=== PATIENT | male | born 1975 | race Caucasian/White ===

== ENCOUNTER 2016-06-11 04:43 | Emergency (ER) | payer SELFPAY ==
[~2016-06-11] VITALS: Ht 177.8 cm; Wt 62.0 kg
[~2016-06-11 04:43] MED LIST: ESCI10TA PO
[2016-06-11 04:44] VITALS: BP 135/89; PULSE 86; RESP 15; TEMP 97.8; O2SAT 98
[2016-06-11] MEDS ORDERED: SUBO8MIS SL (05:26)
--- NOTE | 2016-06-11 05:51 | PD ---
HPI Chief Complaint: Psychiatric Symptoms Time Seen by Provider: 05:10 Travel History International Travel<30 days: No Contact w/Intl Traveler<30days: No Traveled to known affect area: No History of Present Illness HPI Patient is a 40-year-old male presents emergency department for evaluation of suicidal ideation. Patient states he has been using cocaine in the past. He states that he wants to be clean and if he can't keep clean he may end it all. He is very passive suicidal statements. Of note his girlfriend is here and per triage has very similar history. He denies any physical complaints denies any chest pain abdominal pain nausea vomiting diarrhea. Patient states he considered going to [place] today but was unable to get out there. [facility] Past Medical History Arthritis: Yes Asthma: Yes Diminished Hearing: No Hepatitis: Yes (C) Musculoskeletal: Yes Neurologic: Yes Parkinson's Disease: Yes Respiratory: Yes Integumentary: Yes (ABCESS TO BILAT ARM ) Immunizations Current: Yes Migraines: Yes Tetanus Vaccination: > 5 Years Influenza Vaccination: Yes Past Surgical History Other Surgery: Yes Social History Alcohol Use: Yes (SOCIALLY) Tobacco Use: Yes (1PPD ) Substance Use: Yes (IV DRUGS/COCAINE) Allergies-Medications (Allergen,Severity, Reaction): Coded Allergies: Demerol (Verified Allergy, Severe, UNKNOWN, 06/11/16) Reported Meds & Prescriptions Reported Meds & Active Scripts Active Reported Suboxone Sublingual Film (Buprenorphine-Naloxone Sublingual Film) 8-2 Mg Film 1 Film SL Unique ID number required: Review of Systems Except as stated in HPI: all other systems reviewed are Neg Physical Exam Narrative GENERAL: Well-developed well-nourished no apparent distress. SKIN: Focused skin assessment warm/dry. HEAD: Atraumatic. Normocephalic. EYES: Pupils equal and round. No scleral icterus. No injection or drainage. ENT: No nasal bleeding or discharge. Mucous membranes pink and moist. NECK: Trachea midline. No JVD. CARDIOVASCULAR: Regular rate and rhythm. No murmur appreciated. RESPIRATORY: No accessory muscle use. Clear to auscultation. Breath sounds equal bilaterally. GASTROINTESTINAL: Abdomen soft, non-tender, nondistended. Hepatic and splenic margins not palpable. MUSCULOSKELETAL: No obvious deformities. No clubbing. No cyanosis. No edema. NEUROLOGICAL: Awake and alert. No obvious cranial nerve deficits. Motor grossly within normal limits. Normal speech. PSYCHIATRIC: Normal affect, depressed mood. Endorses suicidal ideation without planning. Data Data Last Documented VS Vital Signs Date Time Temp Pulse Resp B/P Pulse Ox O2 Delivery O2 Flow Rate FiO2 06/11/16 05:26 14 06/11/16 04:44 97.8 86 135/89 98 Room Air Orders Complete Blood Count With Diff (06/11/16 05:11) Comprehensive Metabolic Panel (06/11/16 05:11) Psych Screen (06/11/16 05:11) Drug Screen, Random Urine (06/11/16 05:11) Alcohol (Ethanol) (06/11/16 05:11) Labs Laboratory Tests Test 06/11/16 05:30 White Blood Count 6.0 TH/MM3 Red Blood Count 5.60 MIL/MM3 Hemoglobin 16.0 GM/DL Hematocrit 47.2 % Mean Corpuscular Volume 84.2 FL Mean Corpuscular Hemoglobin 28.5 PG Mean Corpuscular Hemoglobin 33.9 % Concent Red Cell Distribution Width 14.2 % Platelet Count 184 TH/MM3 Mean Platelet Volume 9.0 FL Neutrophils (%) (Auto) 53.5 % Lymphocytes (%) (Auto) 35.3 % Monocytes (%) (Auto) 6.7 % Eosinophils (%) (Auto) 3.4 % Basophils (%) (Auto) 1.1 % Neutrophils # (Auto) 3.2 TH/MM3 Lymphocytes # (Auto) 2.1 TH/MM3 Monocytes # (Auto) 0.4 TH/MM3 Eosinophils # (Auto) 0.2 TH/MM3 Basophils # (Auto) 0.1 TH/MM3 CBC Comment DIFF FINAL Differential Comment Sodium Level 139 MEQ/L Potassium Level 4.0 MEQ/L Chloride Level 108 MEQ/L Carbon Dioxide Level 24.2 MEQ/L Anion Gap 7 MEQ/L Blood Urea Nitrogen 12 MG/DL Creatinine 0.87 MG/DL Estimat Glomerular Filtration 97 ML/MIN Rate Random Glucose 80 MG/DL Calcium Level 9.2 MG/DL Total Bilirubin 0.4 MG/DL Aspartate Amino Transf 15 U/L (AST/SGOT) Alanine Aminotransferase 18 U/L (ALT/SGPT) Alkaline Phosphatase 93 U/L Total Protein 7.6 GM/DL Albumin 3.8 GM/DL Urine Opiates Screen NEG Urine Barbiturates Screen NEG Urine Amphetamines Screen NEG Urine Benzodiazepines Screen NEG Urine Cocaine Screen POS Urine Cannabinoids Screen POS Ethyl Alcohol Level LESS THAN 3 MG/DL MDM Medical Decision Making Medical Screen Exam Complete: Yes Emergency Medical Condition: Yes Differential Diagnosis Substance induced mood disorder, malingering needs to be considered, suicidal ideation. Narrative Course Patient roomed emergency department, has no physical complaints of warmth emergent workup at this time. He is medically stable for psychiatric evaluation and disposition. He is voluntary status at this time and does not meet [place] act criteria. Diagnosis Primary Impression: Adjustment disorder with mixed disturbance of emotions and conduct Additional Impression: Cocaine abuse Condition: Stable Parish Ricci MD Jun 11, 2016 05:51
[2016-06-11 06:00] LABS: AMPHETAMINE, URINE NEG (NEG); BARBITURATES, URINE NEG (NEG); COCAINE, URINE POS (NEG)
[2016-06-11 06:01] LABS: AUTOMATED NEUTROPHIL # 3.2 TH/MM3 (1.8-7.7); BASOPHIL # 0.1 TH/MM3 (0-0.2); BASOPHIL % 1.1 % (0.0-2.0); EOSINOPHIL # 0.2 TH/MM3 (0-0.4); EOSINOPHIL % 3.4 % (0.0-4.0); HEMATOCRIT 47.2 % (39.0-51.0); HEMO FLAGS DIFF FINAL; LYMPH % 35.3 % (9.0-44.0); LYMPHOCYTE # 2.1 TH/MM3 (1.0-4.8); MEAN CELL VOLUME 84.2 FL (80.0-100.0); MEAN CORPUSCULAR HEMOGLOBIN 28.5 PG (27.0-34.0); MEAN CORPUSCULAR HGB CONC 33.9 % (32.0-36.0); MONO % 6.7 % (0.0-8.0); NEUT % 53.5 % (16.0-70.0); PLATELET COUNT 184 TH/MM3 (150-450); RED CELL DISTRIBUTION WIDTH 14.2 % (11.6-17.2)
[2016-06-11 06:05] LABS: ALT (GPT) 18 U/L (12-78); ANION GAP 7 MEQ/L (5-15); AST (GOT) 15 U/L (15-37); BICARBONATE 24.2 MEQ/L (21.0-32.0); BLOOD UREA NITROGEN 12 MG/DL (7-18); CHLORIDE 108 MEQ/L (98-107); GLOMERULAR FILTRATION RATE 97 ML/MIN (>89); SODIUM (NA) 139 MEQ/L (136-145)
[2016-06-11 06:08] LABS: ALKALINE PHOSPHATASE 93 U/L (45-117); TOTAL BILIRUBIN ADULT 0.4 MG/DL (0.2-1.0)
== END 2016-06-11 09:22 | disposition home or self-care (01) ==
LOC: NEPC 04:43
DX: F43.25 Adjustment disorder with mixed disturbance of emotions and conduct (principal); F14.10 Cocaine abuse, uncomplicated; G20 Parkinson's disease; R45.851 Suicidal ideations; F17.210 Nicotine dependence, cigarettes, uncomplicated
CPT/HCPCS: 80053; 80307; 85025; 99284

== ENCOUNTER 2016-10-09 11:26 | Emergency (ER) | payer SELFPAY ==
[~2016-10-09] VITALS: Ht 175.3 cm; Wt 70.0 kg
[~2016-10-09 11:26] MED LIST changes: -ESCI10TA PO; +SUBO8MIS SL
[2016-10-09 11:39] VITALS: BP 129/78; PULSE 72; RESP 14; TEMP 98.4; O2SAT 99
--- NOTE | 2016-10-09 11:59 | PD ---
HPI Chief Complaint: Skin Problem Time Seen by Provider: 11:56 Travel History International Travel<30 days: No Contact w/Intl Traveler<30days: No Traveled to known affect area: No History of Present Illness HPI 40-year-old male presents the emergency department with history of IV drug use, and reports of shooting up Suboxone to his right wrist 2 days ago with secondary pain, swelling, erythema, and warmth along the dorsal wrist and forearm. Patient denies significant fever, chills, or other symptoms. There is no obvious abscess or drainage. He has decreased range of motion secondary to pain. He has no numbness. Pain is 8 out of 10. He is allergic to Demerol. PFSH Past Medical History Arthritis: Yes Asthma: Yes Diminished Hearing: No Hepatitis: Yes (C) Musculoskeletal: Yes Neurologic: Yes Parkinson's Disease: Yes Respiratory: Yes Integumentary: Yes (ABCESS TO BILAT ARM ) Immunizations Current: Yes Migraines: Yes Past Surgical History Other Surgery: Yes Social History Alcohol Use: Yes (SOCIALLY) Tobacco Use: Yes (1PPD ) Substance Use: Yes Allergies-Medications (Allergen,Severity, Reaction): Coded Allergies: Demerol (Verified Allergy, Severe, UNKNOWN, 06/11/16) Reported Meds & Prescriptions Reported Meds & Active Scripts Active Reported Suboxone Sublingual Film (Buprenorphine-Naloxone Sublingual Film) 8-2 Mg Film 1 Film SL Unique ID number required: Review of Systems Except as stated in HPI: all other systems reviewed are Neg General / Constitutional: No: Fever, Chills Eyes: No: Visual changes HENT: No: Headaches Cardiovascular: No: Chest Pain or Discomfort Respiratory: No: Shortness of Breath Gastrointestinal: No: Abdominal Pain Genitourinary: No: Dysuria Musculoskeletal: No: Pain Skin: Positive Lesions (see history of present illness), No Rash Neurologic: No: Weakness Psychiatric: No: Depression Endocrine: No: Polydipsia Hematologic/Lymphatic: No: Easy Bruising Physical Exam Narrative GENERAL: Patient is in no acute distress. SKIN: Warm and dry. Normal color. Normal turgor. Patient has generalized erythema, warmth, and induration to the dorsal right proximal hand, wrist, and distal forearm. There is no obvious sign of abscess, pointing, or fluctuance. No significant streaking proximally. HEAD: Atraumatic. Normocephalic. EYES: Pupils equal and round. No scleral icterus. No injection or drainage. ENT: No nasal bleeding or discharge. Mucous membranes pink and moist. Pharynx is clear. Airway is patent NECK: Trachea midline. Supple nontender. CARDIOVASCULAR: Regular rate and rhythm. RESPIRATORY: No accessory muscle use. Clear to auscultation. Breath sounds equal bilaterally. MUSCULOSKELETAL: Extremities without clubbing, cyanosis, or edema. No obvious deformities. Patient has decreased range of motion of the right hand, wrist, and forearm secondary to pain. NEUROLOGICAL: Awake and alert. No obvious cranial nerve deficits. Motor grossly within normal limits. Five out of 5 muscle strength in the arms and legs. Normal speech. PSYCHIATRIC: Appropriate mood and affect; insight and judgment normal. Data Data Last Documented VS Vital Signs Date Time Temp Pulse Resp B/P Pulse Ox O2 Delivery O2 Flow Rate FiO2 10/09/16 11:39 98.4 72 14 129/78 99 Orders Clindamycin Inj (Cleocin Inj) (10/09/16 12:00) Ketorolac Inj (Toradol Inj) (10/09/16 12:00) [facility] Medical Decision Making Medical Screen Exam Complete: Yes Emergency Medical Condition: Yes Medical Record Reviewed: Yes Differential Diagnosis IV drug abuse. Cellulitis. Possible early abscess. MRSA. Narrative Course Patient is medically stable at time of exam. Patient is given 60 mg Toradol IM as well as 600 mg clindamycin IM. Patient is discharged home with Bactrim DS twice a day 7 days. Patient also given Keflex 500 mg 3 times a day 7 days. Patient is given ibuprofen 800 mg 3 times daily with food #30. Patient is to follow up if symptoms do not improve or worsen over the next couple days. Patient is encouraged to stop using illicit street drugs. Diagnosis Primary Impression: Right arm cellulitis Additional Impression: Polysubstance dependence including opioid type drug, episodic abuse Referrals: [facility] (Out patient) [facility] Patient Instructions: Cellulitis (ED), General Instructions, MRSA (Methicillin Resistant Staphylococcus Aureus) (ED) Additional Instructions: Patient is medically stable at time of exam. Patient is given 60 mg Toradol IM as well as 600 mg clindamycin IM. Patient is discharged home with Bactrim DS twice a day 7 days. Patient also given Keflex 500 mg 3 times a day 7 days. Patient is given ibuprofen 800 mg 3 times daily with food #30. Patient is to follow up if symptoms do not improve or worsen over the next couple days. Patient is encouraged to stop using illicit street drugs. Med/Other Pt SpecificInfo: Prescription(s) given Scripts Ibuprofen 800 Mg [id number] Mg PO Q8H PRN (Pain/Inflammation) #30 TAB Prov:Sam Sanchez MD 10/09/16 Cephalexin 500 Mg [id number] Mg PO Q8H #21 CAP Prov:Sam Sanchez MD 10/09/16 Sulfamethoxazole-Trimethoprim (Bactrim DS)800-160 Mg Tab1 Tab PO BID #14 TAB Prov:Sam Sanchez MD 10/09/16 Disposition: 01 DISCHARGE HOME Condition: Stable Tejinder Wesley Oct 09, 2016 11:59
[2016-10-09] MEDS ORDERED: KETOROLAC TROMETHAMINE 60 MG/2 ML (IM) VIAL IM ONE (12:00)
[2016-10-09] MEDS ORDERED: CLINDAMYCIN PHOS 600 MG/4 ML VIAL IM ONE (12:00)
[2016-10-09] MEDS ORDERED: IBUP800T23 PO (12:06)
[2016-10-09] MEDS ORDERED: CEPH500C PO (12:06)
[2016-10-09] MEDS ORDERED: BACT800T5 PO (12:06)
== END 2016-10-09 12:41 | disposition home or self-care (01) ==
LOC: NEPK 11:26
DX: L03.113 Cellulitis of right upper limb (principal); F11.10 Opioid abuse, uncomplicated; J45.909 Unspecified asthma, uncomplicated; G20 Parkinson's disease; B19.20 Unspecified viral hepatitis C without hepatic coma
CPT/HCPCS: 96372; 99284; J1885

== ENCOUNTER 2016-11-16 11:34 | Emergency (ER) | payer SELFPAY ==
[~2016-11-16] VITALS: Ht 177.8 cm; Wt 70.0 kg
[~2016-11-16 11:34] MED LIST changes: +BACT800T5 PO; +CEPH500C PO; +IBUP800T23 PO
[2016-11-16 11:36] VITALS: BP 125/78; PULSE 97; RESP 16; TEMP 98.7; O2SAT 97
[2016-11-16] MEDS ORDERED: CEPH-460 PO (12:07)
[2016-11-16] MEDS ORDERED: BACT800T5 PO (12:07)
--- NOTE | 2016-11-16 12:07 | PD ---
HPI Chief Complaint: Skin Problem Time Seen by Provider: 12:01 Travel History International Travel<30 days: No Contact w/Intl Traveler<30days: No Traveled to known affect area: No History of Present Illness HPI 40-year-old male with no significant medical history presents to the emergency department for evaluation of blisters on his feet worsening over the last 3-4 days. Patient states that they are very painful and has developed redness surrounding them with drainage from the site. States that [facility] and his feet have been wet. He denies any fever or chills. In sensation of his tetanus status. No other symptoms to report. PFSH Past Medical History Arthritis: Yes Asthma: Yes Diminished Hearing: No Hepatitis: Yes (C) Musculoskeletal: Yes Neurologic: Yes Parkinson's Disease: Yes Respiratory: Yes Integumentary: Yes (ABCESS TO BILAT ARM ) Immunizations Current: Yes Migraines: Yes Past Surgical History Other Surgery: Yes Social History Alcohol Use: Yes (SOCIALLY) Tobacco Use: Yes (1PPD ) Substance Use: Yes Allergies-Medications (Allergen,Severity, Reaction): Coded Allergies: meperidine (Unverified Allergy, Severe, UNKNOWN, 10/20/16) Reported Meds & Prescriptions Reported Meds & Active Scripts Active Keflex (Cephalexin) 500 Mg Cap 500 Mg PO Q6H 5 Days Bactrim DS (Sulfamethoxazole-Trimethoprim) 800-160 Mg Tab 1 Tab PO BID Ibuprofen 800 Mg Tab 800 Mg PO Q8H PRN Cephalexin 500 Mg Cap 500 Mg PO Q8H Bactrim DS (Sulfamethoxazole-Trimethoprim) 800-160 Mg Tab 1 Tab PO BID Reported Suboxone Sublingual Film (Buprenorphine-Naloxone Sublingual Film) 8-2 Mg Film 1 Film SL Unique ID number required: Review of Systems Except as stated in HPI: all other systems reviewed are Neg Physical Exam Narrative GENERAL: Unkempt male patient, ambulatory no acute distress SKIN: Focused skin assessment warm/dry. Full scabbed lesions over the extremities. Patient does have 2 areas of 3 cm in diameter wounds, consistent with friction blisters on the medial aspect of the bilateral heels. There is erythema extending around this with a yellow slough in the middle. No fluctuance. HEAD: Atraumatic. Normocephalic. EYES: Pupils equal and round. No scleral icterus. No injection or drainage. ENT: No nasal bleeding or discharge. Mucous membranes pink and moist. NECK: Trachea midline. No JVD. CARDIOVASCULAR: Regular rate and rhythm. No murmur appreciated. RESPIRATORY: No accessory muscle use. Clear to auscultation. Breath sounds equal bilaterally. MUSCULOSKELETAL: No obvious deformities. No clubbing. No cyanosis. No edema. NEUROLOGICAL: Awake and alert. No obvious cranial nerve deficits. Motor grossly within normal limits. Normal speech. Data Data Last Documented VS Vital Signs Date Time Temp Pulse Resp B/P (MAP) Pulse Ox O2 Delivery O2 Flow Rate FiO2 11/16/16 11:36 98.7 97 16 125/78 (94) 97 Orders Orders Tetanus/Diphtheria Tox Adult (Tetanus/Di (11/16/16 12:15) Wound Care (11/16/16 12:01) MDM Medical Decision Making Medical Screen Exam Complete: Yes Emergency Medical Condition: Yes Medical Record Reviewed: Yes Differential Diagnosis Blister versus open wound versus infected wound versus cellulitis Narrative Course 40-year-old male presents to the emergency department for evaluation of foot blisters. Physical finding is consistent with friction blisters and a slight cellulitis surrounding them. He will be started on oral antibiotic. He is updated on his tetanus. He is counseled on care. He agrees to return immediately with any acute worsening of symptoms. Diagnosis Primary Impression: Infected blister of left foot Qualified Codes: S90.822A - Blister (nonthermal), left foot, initial encounter ; L08.9 - Local infection of the skin and subcutaneous tissue, unspecified Additional Impression: Infected blister of right foot Qualified Codes: S90.821A - Blister (nonthermal), right foot, initial encounter; L08.9 - Local infection of the skin and subcutaneous tissue, unspecified Referrals: Primary Care Physician Patient Instructions: Acute Wound Care (GEN), General Instructions Additional Instructions: Keep the wounds clean and dry Wash with warm soapy water Pat dry Apply antibiotic ointment that he can purchase [id number] Return immediately to the emergency department with any acute worsening of symptoms Med/Other Pt SpecificInfo: Prescription(s) given Scripts Cephalexin (Keflex) 500 Mg Cap 500 MG PO Q6H for Infection for 5 Days, CAP 0 Refills Prov: Yadi Sanchez 11/16/16 Sulfamethoxazole-Trimethoprim (Bactrim DS) 800-160 Mg Tab 1 TAB PO BID for Infection, #20 TAB 0 Refills Prov: Yadi Sanchez 11/16/16 Disposition: 01 DISCHARGE HOME Condition: Stable Yadi Sanchez Nov 16, 2016 12:07
[2016-11-16] MEDS ORDERED: TETANUS/DIPHTHERIA TOXOID ADULT 0.5 ML VIAL IM ONE (12:15)
== END 2016-11-16 12:43 | disposition home or self-care (01) ==
LOC: NETRI 11:34
DX: S90.822A Blister (nonthermal), left foot, initial encounter (principal); S90.821A Blister (nonthermal), right foot, initial encounter; L08.9 Local infection of the skin and subcutaneous tissue, unspecified; X58.XXXA Exposure to other specified factors, initial encounter
CPT/HCPCS: 99284

== ENCOUNTER 2016-12-04 10:47 | Emergency (ER) | payer SELFPAY ==
[~2016-12-04] VITALS: Ht 177.8 cm; Wt 64.0 kg
[~2016-12-04 10:47] MED LIST changes: +CEPH-460 PO
[2016-12-04 10:54] VITALS: BP 108/73; PULSE 107; RESP 16; TEMP 100.2; O2SAT 97
[2016-12-04] MEDS ORDERED: SODIUM CHLOR 0.9% 1000 ML INJ 100 ML IV ONE (11:16)
[2016-12-04] MEDS ORDERED: SODIUM CHLOR 0.9% 1000 ML INJ 1,000 ML IV ONE ×2 (11:16)
[2016-12-04] MEDS ORDERED: ONDANSETRON HCL 4 MG/2 ML VIAL IV PUSH ONE (11:30)
[2016-12-04] MEDS ORDERED: ACETAMINOPHEN 325 MG TAB PO ONE (11:30)
--- NOTE | 2016-12-04 11:35 | PD ---
HPI Chief Complaint: GI Complaint Time Seen by Provider: 11:05 Travel History International Travel<30 days: No Contact w/Intl Traveler<30days: No Traveled to known affect area: No History of Present Illness HPI The patient is a 40-year-old male who presents to the emergency department for sore throat, anterior neck pain, and subjective fevers. The patient notes a 3-4 history day history of nausea, vomiting, diarrhea. The patient states the vomiting and diarrhea resolved yesterday, however, he then developed a fever. He now complains of a sore throat, pain with swallowing, and anterior neck pain. The patient does have a remote history of IV drug abuse , last used IV drugs one year ago. He denies any history of epidural abscess. He does have a history of low back pain, denies any acute changes. He denies any posterior neck pain or meningeal signs. He does note multiple skin lesions to the hands and legs bilaterally which have been present for several weeks. He denies any known history of MRSA infections. The patient's symptoms are moderate, there are no current alleviating or exacerbating factors. PFSH Past Medical History Arthritis: Yes Asthma: Yes Diminished Hearing: No Hepatitis: Yes (C) Musculoskeletal: Yes Neurologic: Yes Parkinson's Disease: Yes Respiratory: Yes Integumentary: Yes (ABCESS TO BILAT ARM ) Immunizations Current: Yes Migraines: Yes Past Surgical History Other Surgery: Yes Social History Alcohol Use: Yes (SOCIALLY) Tobacco Use: Yes (1PPD ) Substance Use: Yes Allergies-Medications (Allergen,Severity, Reaction): Coded Allergies: meperidine (Unverified Allergy, Severe, UNKNOWN, 12/04/16) Reported Meds & Prescriptions Reported Meds & Active Scripts Active Reported Suboxone Sublingual Film (Buprenorphine-Naloxone Sublingual Film) 8-2 Mg Film 1 Film SL Unique ID number required: Review of Systems Except as stated in HPI: all other systems reviewed are Neg General / Constitutional: Positive: Fever HENT: Positive: Sore Throat, No: Headaches Cardiovascular: No: Chest Pain or Discomfort Respiratory: Positive: Cough, No: Shortness of Breath Gastrointestinal: Positive: Nausea, Vomiting, Diarrhea, No: Abdominal Pain Genitourinary: No: Dysuria Musculoskeletal: Positive: Myalgias Skin: Positive Other (as noted in the history of present illness) Psychiatric: Positive: Substance Abuse (stop using IV drugs one year ago) Physical Exam Narrative GENERAL: Awake, alert, pleasant 40-year-old male who appears his stated age and is in no acute respiratory distress. SKIN: Focused skin assessment warm/dry. Multiple circular crusting skin lesions noted arms, hands, and Lasix consistent with impetigo. HEAD: Atraumatic. Normocephalic. EYES: Pupils equal and round. No scleral icterus. No injection or drainage. ENT: No nasal bleeding or discharge. Oropharynx reveals erythema but no exudate. NECK: Trachea midline. No JVD. Shotty anterior cervical lymph adenopathy bilateral. No meningeal signs. CARDIOVASCULAR: Regular rate and rhythm. No murmur appreciated. Heart rate in the 90s. RESPIRATORY: No accessory muscle use. Clear to auscultation. Breath sounds equal bilaterally. GASTROINTESTINAL: Abdomen soft, non-tender, nondistended. No rebound tenderness. No guarding or rigidity. MUSCULOSKELETAL: No obvious deformities. No clubbing. No cyanosis. No edema. NEUROLOGICAL: Awake and alert. No obvious cranial nerve deficits. Motor grossly within normal limits. Normal speech. Nonfocal. Oriented 4. Follows commands without difficulty. PSYCHIATRIC: Appropriate mood and affect; insight and judgment normal. Data Data Last Documented VS Vital Signs Date Time Temp Pulse Resp B/P (MAP) Pulse Ox O2 Delivery O2 Flow Rate FiO2 12/04/16 11:04 16 12/04/16 10:54 100.2 107 108/73 (85) 97 Orders Orders Electrocardiogram (12/04/16 11:16) Complete Blood Count With Diff (12/04/16 11:16) Comprehensive Metabolic Panel (12/04/16 11:16) Lactic Acid Sepsis Protocol (12/04/16 11:16) Lipase (12/04/16 11:16) Urinalysis - C+S If Indicated (12/04/16 11:16) Influenzae A/B Antigen (12/04/16 11:16) Blood Culture (12/04/16 11:16) Chest, Single Ap (12/04/16 11:16) Blood Glucose (12/04/16 11:16) Ecg Monitoring (12/04/16 11:16) Iv Access Insert/Monitor (12/04/16 11:16) Oximetry (12/04/16 11:16) Oxygen Administration (12/04/16 11:16) Acetaminophen (Tylenol) (12/04/16 11:30) Ondansetron Inj (Zofran Inj) (12/04/16 11:30) Sodium Chlor 0.9% 1000 Ml Inj (Ns 1000 M (12/04/16 11:16) Sodium Chlor 0.9% 1000 Ml Inj (Ns 1000 M (12/04/16 11:16) Sodium Chlor 0.9% 1000 Ml Inj (Ns 1000 M (12/04/16 11:16) Group A Rapid Strep Screen (12/04/16 11:16) Penicillin G Benzathine Inj (Bicillin L- (12/04/16 12:15) Labs Laboratory Tests Test 12/04/16 11:46 White Blood Count 9.5 TH/MM3 Red Blood Count 4.59 MIL/MM3 Hemoglobin 13.2 GM/DL Hematocrit 38.0 % Mean Corpuscular Volume 82.6 FL Mean Corpuscular Hemoglobin 28.8 PG Mean Corpuscular Hemoglobin Concent 34.8 % Red Cell Distribution Width 12.5 % Platelet Count 225 TH/MM3 Mean Platelet Volume 8.8 FL Neutrophils (%) (Auto) 79.4 % Lymphocytes (%) (Auto) 11.3 % Monocytes (%) (Auto) 6.5 % Eosinophils (%) (Auto) 0.7 % Basophils (%) (Auto) 2.1 % Neutrophils # (Auto) 7.5 TH/MM3 Lymphocytes # (Auto) 1.1 TH/MM3 Monocytes # (Auto) 0.6 TH/MM3 Eosinophils # (Auto) 0.1 TH/MM3 Basophils # (Auto) 0.2 TH/MM3 CBC Comment DIFF FINAL Differential Comment Blood Urea Nitrogen 12 MG/DL Creatinine 0.86 MG/DL Random Glucose 107 MG/DL Total Protein 7.1 GM/DL Albumin 3.0 GM/DL Calcium Level 8.7 MG/DL Alkaline Phosphatase 79 U/L Aspartate Amino Transf (AST/SGOT) 26 U/L Alanine Aminotransferase (ALT/SGPT) 17 U/L Total Bilirubin 0.7 MG/DL Sodium Level 135 MEQ/L Potassium Level 4.2 MEQ/L Chloride Level 101 MEQ/L Carbon Dioxide Level 28.7 MEQ/L Anion Gap 5 MEQ/L Estimat Glomerular Filtration Rate 98 ML/MIN Lipase 92 U/L MDM Medical Decision Making Medical Screen Exam Complete: Yes Emergency Medical Condition: Yes Medical Record Reviewed: Yes Interpretation(s) EKG reveals normal sinus rhythm with a rate 85. No ischemic changes or ectopy noted. Laboratory Tests Test 12/04/16 11:46 White Blood Count 9.5 TH/MM3 Red Blood Count 4.59 MIL/MM3 Hemoglobin 13.2 GM/DL Hematocrit 38.0 % Mean Corpuscular Volume 82.6 FL Mean Corpuscular Hemoglobin 28.8 PG Mean Corpuscular Hemoglobin Concent 34.8 % Red Cell Distribution Width 12.5 % Platelet Count 225 TH/MM3 Mean Platelet Volume 8.8 FL Neutrophils (%) (Auto) 79.4 % Lymphocytes (%) (Auto) 11.3 % Monocytes (%) (Auto) 6.5 % Eosinophils (%) (Auto) 0.7 % Basophils (%) (Auto) 2.1 % Neutrophils # (Auto) 7.5 TH/MM3 Lymphocytes # (Auto) 1.1 TH/MM3 Monocytes # (Auto) 0.6 TH/MM3 Eosinophils # (Auto) 0.1 TH/MM3 Basophils # (Auto) 0.2 TH/MM3 CBC Comment DIFF FINAL Differential Comment Blood Urea Nitrogen 12 MG/DL Creatinine 0.86 MG/DL Random Glucose 107 MG/DL Total Protein 7.1 GM/DL Albumin 3.0 GM/DL Calcium Level 8.7 MG/DL Alkaline Phosphatase 79 U/L Aspartate Amino Transf (AST/SGOT) 26 U/L Alanine Aminotransferase (ALT/SGPT) 17 U/L Total Bilirubin 0.7 MG/DL Sodium Level 135 MEQ/L Potassium Level 4.2 MEQ/L Chloride Level 101 MEQ/L Carbon Dioxide Level 28.7 MEQ/L Anion Gap 5 MEQ/L Estimat Glomerular Filtration Rate 98 ML/MIN Lipase 92 U/L Date/Time Source Procedure Growth Status 12/04/16 11:46 Blood Peripheral Aerobic Blood Culture Pending Received 12/04/16 11:46 Blood Peripheral Anaerobic Blood Culture Pending Received 12/04/16 10:40 Blood Peripheral Aerobic Blood Culture Pending Received 12/04/16 10:40 Blood Peripheral Anaerobic Blood Culture Pending Received 12/04/16 11:35 Nasal Aspirate Influenza Types A,B Antigen (KARAN) - Final NEGATIVE FOR FLU A AND B ANTIGEN.... Complete 12/04/16 11:25 Throat Group A Streptococcus Screen (KARAN) - Final Pos For Grp A Strep Antigen Complete Chest x-ray reveals no acute cardiopulmonary findings Differential Diagnosis Differential diagnosis includes pharyngitis, strep pharyngitis, viral pharyngitis, URI, influenza, impetigo, bacteremia, septicemia, gastroenteritis, epidural abscess. Narrative Course IV was established, labs are drawn and sent, and the patient was placed on cardiac telemetry monitoring and continuous pulse oximetry monitoring. EKG was ordered and interpreted. Blood culture and lactic gas were sent to lab. Skin examination does reveal multiple impetigo type lesions. The patient's oropharynx was erythematous with anterior cervical lymphadenopathy and fever, therefore, strep screen was sent to lab. The patient has no meningeal signs, I doubt meningitis. Patient's back pain is nonspecific, I doubt epidural abscess as he is no IV drug use and one year per his report. Chest x-ray was obtained rule out pneumonia. The patient was provided Tylenol and IV fluids. Influenza screen was negative. Nursing staff was able to obtain blood work but unable to obtain IV placement. The patient had no further vomiting, was able to tolerate oral intake, therefore, was rehydrated orally. Strep screen was positive for strep pharyngitis. The patient has strep pharyngitis and impetigo, and I had a discussion regarding treatment for the strep pharyngitis with Bicillin LA versus pen VK. The patient would prefer one-time injection. Therefore, the patient was administered Bicillin LA 1.2 million units IM. The patient's impetigo will be treated with Bactrim to cover for community MRSA. LFTs and lipase are unremarkable. Lactic acid was canceled as source of infection is noted. Patient is advised to follow-up with her primary physician. Diagnosis Primary Impression: Strep pharyngitis Additional Impression: Impetigo Patient Instructions: General Instructions Additional Instructions: Alternate Tylenol and Motrin for pain and fevers. Bactrim as directed. Follow- up with a primary physician. Return if symptoms worsen or progress. Med/Other Pt SpecificInfo: Prescription(s) given Scripts Sulfamethoxazole-Trimethoprim (Bactrim DS) 800-160 Mg Tab 1 TAB PO BID for Infection, #20 TAB 0 Refills Prov: Sam Sanchez MD 12/04/16 Disposition: DISCHARGE HOME Condition: Stable Sam Sanchez MD Dec 04, 2016 11:35
--- NOTE | 2016-12-04 11:42 | RADRPT ---
EXAM DATE/TIME: 12/04/2016 11:28 [facility] COMPARISON: CHEST SINGLE AP, November 22, 2015, 0:50. INDICATIONS : Fever, short of breath. MEDICAL HISTORY : None. SURGICAL HISTORY : None. ENCOUNTER: Initial ACUITY: 1 week PAIN SCORE: 0/10 LOCATION: Bilateral chest FINDINGS: A single view of the chest demonstrates the lungs to be symmetrically aerated without evidence of mas s, infiltrate or effusion. The cardiomediastinal contours are unremarkable. Osseous structures demo nstrate calcification of the distal supraspinatus tendon on the left. There is no acute fracture seen . CONCLUSION: 1. No acute cardiopulmonary findings. 2. Calcification of the distal supraspinatus tendon on the left. Jose Guzman MD on December 04, 2016 at 11:39 Board Certified Radiologist. This report was verified electronically.
[2016-12-04 11:55] LABS: AUTOMATED NEUTROPHIL # 7.5 TH/MM3 (1.8-7.7); BASOPHIL # 0.2 TH/MM3 (0-0.2); BASOPHIL % 2.1 % (0.0-2.0); EOSINOPHIL # 0.1 TH/MM3 (0-0.4); EOSINOPHIL % 0.7 % (0.0-4.0); HEMO FLAGS DIFF FINAL; LYMPH % 11.3 % (9.0-44.0); LYMPHOCYTE # 1.1 TH/MM3 (1.0-4.8); MEAN CELL VOLUME 82.6 FL (80.0-100.0); MEAN CORPUSCULAR HEMOGLOBIN 28.8 PG (27.0-34.0); MEAN CORPUSCULAR HGB CONC 34.8 % (32.0-36.0); MONO % 6.5 % (0.0-8.0); NEUT % 79.4 % (16.0-70.0); PLATELET COUNT 225 TH/MM3 (150-450); RED BLOOD COUNT 4.59 MIL/MM3 (4.50-5.90); RED CELL DISTRIBUTION WIDTH 12.5 % (11.6-17.2); WHITE BLOOD COUNT 9.5 TH/MM3 (4.0-11.0)
[2016-12-04 12:08] LABS: CHLORIDE 101 MEQ/L (98-107); SODIUM (NA) 135 MEQ/L (136-145)
[2016-12-04 12:12] LABS: ANION GAP 5 MEQ/L (5-15); BICARBONATE 28.7 MEQ/L (21.0-32.0)
[2016-12-04 12:13] LABS: BLOOD UREA NITROGEN 12 MG/DL (7-18)
[2016-12-04 12:15] LABS: POTASSIUM 4.2 MEQ/L (3.5-5.1)
[2016-12-04] MEDS ORDERED: PENICILLIN G BENZATHINE 1,200,000 UNITS/2 ML SYRINGE IM ONE (12:15)
[2016-12-04 12:16] LABS: ALT (GPT) 17 U/L (12-78); AST (GOT) 26 U/L (15-37); GLOMERULAR FILTRATION RATE 98 ML/MIN (>89)
[2016-12-04 12:17] LABS: TOTAL BILIRUBIN ADULT 0.7 MG/DL (0.2-1.0)
[2016-12-04 12:18] LABS: ALKALINE PHOSPHATASE 79 U/L (45-117)
[2016-12-04] MEDS ORDERED: BACT800T5 PO (12:22)
--- NOTE | 2016-12-04 13:32 | EKG ---
Date Performed: 12/04/2016 Time Performed: 11:23:31 PTAGE: 40 years EKG: Sinus rhythm NORMAL ECG PREVIOUS TRACING : 11/22/2015 00.24 No change from previous tracing noted. DOCTOR: Jaylon Kamara Interpretating Date/Time 12/04/2016 13:32:21
== END 2016-12-04 13:42 | disposition home or self-care (01) ==
LOC: PHED 10:47
DX: J02.0 Streptococcal pharyngitis (principal); L01.00 Impetigo, unspecified; J45.909 Unspecified asthma, uncomplicated; G20 Parkinson's disease; F17.210 Nicotine dependence, cigarettes, uncomplicated
CPT/HCPCS: 71010; 80053; 83690; 85025; 87040; 87804; 87880; 93005; 96372; 99285; J0561

== ENCOUNTER 2017-02-08 14:18 | Emergency (ER) | payer SELFPAY ==
[~2017-02-08] VITALS: Ht 175.3 cm; Wt 68.0 kg
[~2017-02-08 14:18] MED LIST changes: -CEPH-460 PO; -CEPH500C PO; -IBUP800T23 PO
[2017-02-08 14:24] VITALS: BP 147/100; PULSE 94; RESP 16; TEMP 98.5; O2SAT 98
[2017-02-08] MEDS ORDERED: SABOXONE PO (15:00)
[2017-02-08] MEDS ORDERED: PENI500T PO (15:02)
--- NOTE | 2017-02-08 15:03 | PD ---
HPI Chief Complaint: Oral / Dental Pain or Problem Time Seen by Provider: 14:48 Travel History International Travel<30 days: No Contact w/Intl Traveler<30days: No Traveled to known affect area: No History of Present Illness HPI 41-year-old male here with left lower dental pain and swelling. He denies fever or chills. He reports widespread dental decay and previous abscesses. Symptom severity is mild. No alleviating factors. PFSH Past Medical History Medical History: Denies Significant Hx Social History Tobacco Use: Yes Allergies-Medications (Allergen,Severity, Reaction): Coded Allergies: meperidine (Verified Allergy, Severe, Anaphylaxis, 02/08/17) Reported Meds & Prescriptions Reported Meds & Active Scripts Active No Active Prescriptions or Reported Medications Review of Systems Except as stated in HPI: all other systems reviewed are Neg Physical Exam Narrative GENERAL: Alert, well-appearing male in no distress. SKIN: Warm and dry. HEAD: Normocephalic. MOUTH: Widespread senses came. Tooth #27-29 decayed and fractured NECK: Supple, trachea midline. No JVD or lymphadenopathy. CARDIOVASCULAR: Regular rate and rhythm without murmurs, gallops, or rubs. RESPIRATORY: Breath sounds equal bilaterally. No accessory muscle use. Data Data Last Documented VS Vital Signs Date Time Temp Pulse Resp B/P (MAP) Pulse Ox O2 Delivery O2 Flow Rate FiO2 02/08/17 14:24 98.5 94 16 147/100 (116) 98 MDM Medical Decision Making Medical Screen Exam Complete: Yes Emergency Medical Condition: Yes Differential Diagnosis Dental abscess, periodontal disease, dental caries Narrative Course 41 -year-old male with right lower dental pain and swelling. On exam he has widespread dental decay. He is nontoxic appearing. Patient be treated for dental abscess. Diagnosis Primary Impression: Dental infection Referrals: [facility] Penicillin V Potassium (Penicillin V Potassium) 500 Mg Tab 500 MG PO Q6H for Infection for 7 Days, #28 TAB 0 Refills Prov: Sharon Anne 02/08/17 Disposition: 01 DISCHARGE HOME Condition: Stable Sharon Anne Feb 08, 2017 15:03
[2017-02-09] MEDS ORDERED: SUBO8MIS SL (12:28)
[2017-02-19] MEDS ORDERED: IBUP1TAB7 PO (11:40)
[2017-02-19] MEDS ORDERED: BACT800T5 PO (11:40)
== END 2017-02-08 15:04 | disposition home or self-care (01) ==
LOC: MERGE 14:18 → PHEFT 14:18
DX: K04.7 Periapical abscess without sinus (principal); Z72.0 Tobacco use
CPT/HCPCS: 99283

== ENCOUNTER 2017-04-05 19:21 | Emergency (ER) | payer SELFPAY ==
[~2017-04-05] VITALS: Ht 175.3 cm; Wt 68.2 kg
[2017-04-05 19:22] VITALS: BP 132/88; PULSE 110; RESP 16; TEMP 98.6
--- NOTE | 2017-04-06 00:56 | PD ---
HPI Chief Complaint: Skin Problem Time Seen by Provider: 00:14 Travel History International Travel<30 days: No Contact w/Intl Traveler<30days: No Traveled to known affect area: No History of Present Illness HPI This patient complains of infection in his upper lip. Duration is 4 days. Severity is moderate. He denies fever. He is not sure what happened to it. He says it started out as a pimple and grew from there. Patient is a frequent IV drug abuser. He is homeless but did stay at a friend's place last night. He has hepatitis C. No alleviating factors. Symptoms exacerbated by his drug use. PFSH Past Medical History Arthritis: Yes Asthma: Yes Diminished Hearing: No Headaches: Yes Hepatitis: Yes (HEP C) Musculoskeletal: Yes Neurologic: Yes Parkinson's Disease: Yes Respiratory: Yes Integumentary: Yes (ABCESS TO BILAT ARM ) Immunizations Current: Yes Migraines: Yes Seizures: Yes Tetanus Vaccination: < 5 Years Past Surgical History Other Surgery: Yes Social History Alcohol Use: No Tobacco Use: Yes (1 pack per day) Substance Use: Yes (Heroin, cocaine, marijuana) Allergies-Medications (Allergen,Severity, Reaction): Coded Allergies: meperidine (Verified Allergy, Severe, UNKNOWN, 03/14/17) Reported Meds & Prescriptions Reported Meds & Active Scripts Active No Active Prescriptions or Reported Medications Review of Systems General / Constitutional: No: Fever Eyes: No: Visual changes HENT: No: Headaches Cardiovascular: No: Chest Pain or Discomfort Respiratory: No: Shortness of Breath Gastrointestinal: No: Abdominal Pain Genitourinary: No: Dysuria Musculoskeletal: Positive: Pain Skin: No Rash Neurologic: No: Weakness Psychiatric: Positive: Substance Abuse, No: Depression Endocrine: No: Polydipsia Hematologic/Lymphatic: No: Easy Bruising Physical Exam Narrative GENERAL: Disheveled well-developed patient in no apparent distress. SKIN: Focused skin assessment reveals multiple scabbed lesions on the arms bilaterally. Skin is Warm and dry. HEAD: Atraumatic. Normocephalic. EYES: Pupils equal and round. No scleral icterus. No injection or drainage. ENT: No nasal bleeding or discharge. Mucous membranes pink and moist. He has prominent diffuse swelling of the upper lip. It is tender. It is fluctuant and draining on the inside. Culture was obtained. NECK: Trachea midline. No JVD. CARDIOVASCULAR: Regular rate and rhythm. No murmur appreciated. RESPIRATORY: No accessory muscle use. Clear to auscultation. Breath sounds equal bilaterally. GASTROINTESTINAL: Abdomen soft, non-tender, nondistended. Hepatic and splenic margins not palpable. MUSCULOSKELETAL: No obvious deformities. No clubbing. No cyanosis. No edema. NEUROLOGICAL: Awake and alert. No obvious cranial nerve deficits. Motor grossly within normal limits. Normal speech. PSYCHIATRIC: Appropriate mood and affect; insight and judgment poor . Data Data Last Documented VS Vital Signs Date Time Temp Pulse Resp B/P (MAP) Pulse Ox O2 Delivery O2 Flow Rate FiO2 04/05/17 19:22 98.6 110 16 132/88 (103) Room Air Orders Orders Iv Access Insert/Monitor (04/06/17 00:49) Complete Blood Count With Diff (04/06/17 00:49) Basic Metabolic Panel (Bmp) (04/06/17 00:49) Prothrombin Time / Inr (Pt) (04/06/17 00:49) Act Partial Throm Time (Ptt) (04/06/17 00:49) Vancomycin Inj (Vancomycin Inj) (04/06/17 01:00) Wound Culture And Gram Stain (04/06/17 00:49) Piperacil-Tazo 3.375 Gm Premix (Zosyn 3. (04/06/17 01:00) [facility] Medical Decision Making Medical Screen Exam Complete: Yes Emergency Medical Condition: Yes Medical Record Reviewed: Yes Differential Diagnosis Abscess, cellulitis, boil Narrative Course I have reviewed the patient's electronic medical record. I have ordered a workup to include lab studies and wound culture as well as vancomycin and Zosyn dosing case reviewed with TEE Armstrong who will check work up and assist with getting patient admitted for IV abx and consideration of operative drainage Diagnosis Primary Impression: Lip abscess Additional Impression: Polysubstance dependence including opioid type drug, episodic abuse Admitting Information Admitting Physician Requests: Admit Scripts No Active Prescriptions or Reported Meds Teofilo Rodrigues MD Apr 06, 2017 00:56
[2017-04-06] MEDS ORDERED: VANCOMYCIN INJ 1,000 MG in SODIUM CHLOR 0.9% 250 ML INJ 250 ML IV ONE (01:00)
[2017-04-06] MEDS ORDERED: PIPERACIL-TAZO 3.375 GM PREMIX 50 ML IV ONE (01:00)
[2017-04-06 01:13] LABS: AUTOMATED NEUTROPHIL # 11.2 TH/MM3 (1.8-7.7); BASOPHIL # 0.1 TH/MM3 (0-0.2); BASOPHIL % 0.6 % (0.0-2.0); EOSINOPHIL # 0.1 TH/MM3 (0-0.4); EOSINOPHIL % 0.9 % (0.0-4.0); HEMATOCRIT 45.3 % (39.0-51.0); HEMOGLOBIN 15.9 GM/DL (13.0-17.0); LYMPH % 13.7 % (9.0-44.0); MEAN CELL VOLUME 82.3 FL (80.0-100.0); MEAN CORPUSCULAR HEMOGLOBIN 28.9 PG (27.0-34.0); MEAN CORPUSCULAR HGB CONC 35.2 % (32.0-36.0); MEAN PLATELET VOLUME 8.5 FL (7.0-11.0); MONO % 7.7 % (0.0-8.0); MONOCYTE # 1.1 TH/MM3 (0-0.9); NEUT % 77.1 % (16.0-70.0); PLATELET COUNT 294 TH/MM3 (150-450); RED CELL DISTRIBUTION WIDTH 14.4 % (11.6-17.2); WHITE BLOOD COUNT 14.6 TH/MM3 (4.0-11.0)
[2017-04-06] MEDS ORDERED: ACETAMINOPHEN/HYDROcodone 325 MG/5 MG TAB PO ONE (01:30)
[2017-04-06] MEDS ORDERED: IBUPROFEN 600 MG TAB PO ONE ×2 (01:30→10:15)
[2017-04-06 02:27] LABS: PROTHROMBIN TIME - PATIENT 9.9 SEC (9.8-11.6)
[2017-04-06 02:39] LABS: BICARBONATE 26.5 MEQ/L (21.0-32.0); CALCIUM 8.9 MG/DL (8.5-10.1); CREATININE 0.92 MG/DL (0.60-1.30)
--- NOTE | 2017-04-06 04:07 | PD ---
Physical Exam Date Seen by Provider: Apr 06, 2017 Time Seen by Provider: 04:04 Data Data Last Documented VS Vital Signs Date Time Temp Pulse Resp B/P (MAP) Pulse Ox O2 Delivery O2 Flow Rate FiO2 04/05/17 19:22 98.6 110 16 132/88 (103) Room Air Orders Orders Iv Access Insert/Monitor (04/06/17 00:49) Complete Blood Count With Diff (04/06/17 00:49) Basic Metabolic Panel (Bmp) (04/06/17 00:49) Prothrombin Time / Inr (Pt) (04/06/17 00:49) Act Partial Throm Time (Ptt) (04/06/17 00:49) Vancomycin Inj (Vancomycin Inj) (04/06/17 01:00) Wound Culture And Gram Stain (04/06/17 00:49) Piperacil-Tazo 3.375 Gm Premix (Zosyn 3. (04/06/17 01:00) Acetamin-Hydrocod 325-5 Mg (Strawn 5-325 (04/06/17 01:30) Ibuprofen (Motrin) (04/06/17 01:30) Sodium Chlor 0.9% 1000 Ml Inj (Ns 1000 M (04/06/17 04:15) Sodium Chlor 0.9% 1000 Ml Inj (Ns 1000 M (04/06/17 04:15) Labs Laboratory Tests Test 04/06/17 00:55 04/06/17 02:00 04/06/17 02:10 White Blood Count 14.6 TH/MM3 Red Blood Count 5.50 MIL/MM3 Hemoglobin 15.9 GM/DL Hematocrit 45.3 % Mean Corpuscular Volume 82.3 FL Mean Corpuscular Hemoglobin 28.9 PG Mean Corpuscular Hemoglobin Concent 35.2 % Red Cell Distribution Width 14.4 % Platelet Count 294 TH/MM3 Mean Platelet Volume 8.5 FL Neutrophils (%) (Auto) 77.1 % Lymphocytes (%) (Auto) 13.7 % Monocytes (%) (Auto) 7.7 % Eosinophils (%) (Auto) 0.9 % Basophils (%) (Auto) 0.6 % Neutrophils # (Auto) 11.2 TH/MM3 Lymphocytes # (Auto) 2.0 TH/MM3 Monocytes # (Auto) 1.1 TH/MM3 Eosinophils # (Auto) 0.1 TH/MM3 Basophils # (Auto) 0.1 TH/MM3 CBC Comment DIFF FINAL Differential Comment Prothrombin Time 9.9 SEC Prothromb Time International Ratio 1.0 RATIO Activated Partial Thromboplast Time 27.4 SEC Blood Urea Nitrogen 9 MG/DL Creatinine 0.92 MG/DL Random Glucose 91 MG/DL Calcium Level 8.9 MG/DL Sodium Level 138 MEQ/L Potassium Level 3.6 MEQ/L Chloride Level 103 MEQ/L Carbon Dioxide Level 26.5 MEQ/L Anion Gap 9 MEQ/L Estimat Glomerular Filtration Rate 90 ML/MIN MDM Medical Record Reviewed: Yes Supervised Visit with EMANUEL: Yes Interpretation(s) CBC & BMP Diagram 04/06/17 00:55 04/06/17 02:10 Calcium Level 8.9 Differential Diagnosis MDM: High Differential diagnoses: Abscess, folliculitis, cellulitis, lymphangitis, abrasion, contact dermatitis Narrative Course IV access is obtained. Routine laboratory tests including CBC, chemistry, wound culture have been obtained. Patient's given vancomycin and Zosyn IV. Patient is given 2 L of normal saline. I review the patient's laboratory testing. The patient will need continued IV antibiotics and will aid admission. Patient meets Sirs criteria. This is facial cellulitis, right upper lip abscess, polysubstance abuse The case has been discussed with Dr. Guadalupe who come down to the department and evaluate the patient. The patient's been seen by the observations. She feels that the patient will most likely benefit best by getting Dalavance and discharged. She has declined the admission today. Case management has been notified. Patient's given Dalavance 1500 mg IV 1. After his infusion the patient will be discharged. Sepsis Criteria SIRS Criteria (2 or more): Heart rate over 90, WBC > 79480, < 4000 or > 10% bands Sepsis Criteria (SIRS+source): Infect source susp/known Criteria Outcome: Meets SIRS criteria Diagnosis Primary Impression: Lip abscess Additional Impression: Polysubstance dependence including opioid type drug, episodic abuse Patient Instructions: General Instructions Additional Instruction: Rest. Warm compresses. Tylenol or Advil for pain. Follow-up with a medical doctor in the next 3-5 days. Return to the ER for emergencies Med/Other Pt SpecificInfo: No Meds Exist/No RX given Scripts No Active Prescriptions or Reported Meds Disposition: DISCHARGE HOME Condition: Stable Joseph Penn PA Apr 06, 2017 04:07
[2017-04-06] MEDS ORDERED: SODIUM CHLOR 0.9% 1000 ML INJ 1,000 ML IV ONE ×2 (04:15)
[2017-04-06] MEDS ORDERED: DALBAVANCIN 1,500 MG/D5W 500 ML IV ONE ×2 (07:00)
[2017-04-06 10:20] VITALS: BP 129/79; PULSE 87; RESP 18; O2SAT 100
== END 2017-04-06 11:30 | disposition home or self-care (01) ==
LOC: NEPD 19:21
DX: K13.0 Diseases of lips (principal); B95.62 Methicillin resistant Staphylococcus aureus infection as the cause of diseases classified elsewhere; F19.20 Other psychoactive substance dependence, uncomplicated; F11.20 Opioid dependence, uncomplicated; J45.909 Unspecified asthma, uncomplicated; M19.90 Unspecified osteoarthritis, unspecified site; B19.20 Unspecified viral hepatitis C without hepatic coma; G20 Parkinson's disease; F17.210 Nicotine dependence, cigarettes, uncomplicated; Z59.0 Homelessness
CPT/HCPCS: 80048; 85025; 85610; 85730; 86403; 87070; 87186; 96361; 96365; 96367; 96375; 99284; J0875; J2543; J3370; J7030; J7050; J7060

== ENCOUNTER 2017-08-07 09:26 | Emergency (ER) | payer SELFPAY ==
[~2017-08-07] VITALS: Ht 177.8 cm; Wt 71.0 kg
[2017-08-07 09:38] VITALS: BP 130/74; PULSE 81; RESP 18; TEMP 98.8; O2SAT 97
[2017-08-07] MEDS ORDERED: SUBO8MIS SL (10:26)
[2017-08-07] MEDS ORDERED: SULFAMETHOXAZOLE-TRIMETHOPRIM DS 800-160 MG TAB PO ONE (10:45)
[2017-08-07] MEDS ORDERED: BACT800T5 PO (10:55)
--- NOTE | 2017-08-07 10:56 | PD ---
HPI Chief Complaint: Skin Problem Time Seen by Provider: 10:31 Travel History International Travel<30 days: No Contact w/Intl Traveler<30days: No Traveled to known affect area: No History of Present Illness HPI 41-year-old male presents emergency department evaluation of bilateral feet blistering and bilateral upper extremity bumps. Says that the blistering on her on his feet started 4 days ago and over the last day has become more painful and he noticed some swelling in his feet. Denies radiation of pain. The pain is mild-moderate in severity. Says that he has also developed bilateral upper extremity bumps been present for approximately 1 month. 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 She denies any pain to these areas. Says he has some mild pruritus. He notes that the areas become enlarged and then follow off causing a small ulceration of the skin. He denies fevers but admits to chills this morning. Patient has a history of opiate dependence and is on Suboxone. History of hepatitis C. Denies IV drug use in approximately 6 months. He does not have a primary care physician. 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 ) Immunizations Current: Yes Migraines: Yes Seizures: Yes Past Surgical History Other Surgery: Yes Social History Alcohol Use: Yes (COUPLE TIMES A MONTH) Tobacco Use: Yes (1/2 pack per day) Substance Use: Yes (MARIJUANA) Allergies-Medications (Allergen,Severity, Reaction): Coded Allergies: meperidine (Verified Allergy, Severe, HIVES, 08/07/17) Reported Meds & Prescriptions Reported Meds & Active Scripts Active Bactrim DS (Sulfamethoxazole-Trimethoprim) 800-160 Mg Tab 1 Tab PO BID Reported Suboxone Sublingual Film (Buprenorphine-Naloxone Sublingual Film) 8-2 Mg Film 1 Film SL TID Unique ID number required: Review of Systems Except as stated in HPI: all other systems reviewed are Neg Physical Exam Narrative GENERAL: Well-developed, well-nourished in no apparent distress SKIN: Focused skin assessment warm/dry. Bilateral feet-areas of blistering between the great and second toe without significant erythema or edema. Bilateral upper extremities-small, raised papules measuring 5 mm with some ulcerations without surrounding edema or erythema. No lymph angiopathic spread. HEAD: Atraumatic. Normocephalic. EYES: Pupils equal and round. No scleral icterus. No injection or drainage. ENT: No nasal bleeding or discharge. Mucous membranes pink and moist. NECK: Trachea midline. No JVD. CARDIOVASCULAR: Regular rate and rhythm. No murmur appreciated. RESPIRATORY: No accessory muscle use. Clear to auscultation. Breath sounds equal bilaterally. GASTROINTESTINAL: Abdomen soft, non-tender, nondistended. MUSCULOSKELETAL: No obvious deformities. No clubbing. No cyanosis. No edema. NEUROLOGICAL: Awake and alert. No obvious cranial nerve deficits. Motor grossly within normal limits. Normal speech. PSYCHIATRIC: Appropriate mood and affect; insight and judgment normal. Data Data Last Documented VS Vital Signs Date Time Temp Pulse Resp B/P (MAP) Pulse Ox O2 Delivery O2 Flow Rate FiO2 08/07/17 09:38 98.8 81 18 130/74 (92) 97 Orders Orders Sulfamet-Trimeth Ds 800-160 Mg (Bactrim (08/07/17 10:45) MDM Medical Decision Making Medical Screen Exam Complete: Yes Emergency Medical Condition: Yes Differential Diagnosis Bilateral upper extremity rash, bug bites, cellulitis lower extremities Narrative Course 41-year-old male presents emergency department evaluation of bilateral feet blistering and bilateral upper extremity bumps. Says that the blistering on her on his feet started 4 days ago and over the last day has become more painful and he noticed some swelling in his feet. Denies radiation of pain. The pain is mild-moderate in severity. Says that he has also developed bilateral upper extremity bumps been present for approximately 1 month. 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 She denies any pain to these areas. Says he has some mild pruritus. He notes that the areas become enlarged and then follow off causing a small ulceration of the skin. He denies fevers but admits to chills this morning. Patient has a history of opiate dependence and is on Suboxone. History of hepatitis C. Denies IV drug use in approximately 6 months. He does not have a primary care physician. Vital signs are stable. His exam findings consistent with blisters between the first and second toes bilaterally with edema surrounding erythema. Poor hygiene of the feet. Bilateral upper extremities with small papules without evidence of cellulitis of his upper extremities. I suspect bug bites that patient continues to irritate, likely forming granulomatous lesions. Bactrim administered in the emergency department. Patient be discharged Bactrim. Advised follow-up with [facility] or [facility] for his care. Diagnosis Primary Impression: Rash and nonspecific skin eruption Additional Impression: Cellulitis Qualified Codes: L03.119 - Cellulitis of unspecified part of limb Referrals: [facility] Primary Care Physician Additional Instructions: Keep areas very clean and dry. Take all antibiotics as prescribed. Follow-up with the [facility] or [facility] as discussed for your care. If you develop increased redness, swelling, pain return to emergency department as this may be a sign of worsening infection. Consider wearing long sleeve shirts throughout the day to reduce sun exposure and worsening of your rash. Scripts Sulfamethoxazole-Trimethoprim (Bactrim DS) 800-160 Mg Tab 1 TAB PO BID for Infection, #14 TAB 0 Refills Prov: Mar Garza MD 08/07/17 Disposition: 01 DISCHARGE HOME Condition: Stable Siomara Engel Aug 07, 2017 10:56
== END 2017-08-07 11:21 | disposition home or self-care (01) ==
LOC: PHED 09:26
DX: R21 Rash and other nonspecific skin eruption (principal); L03.119 Cellulitis of unspecified part of limb; B19.20 Unspecified viral hepatitis C without hepatic coma; J45.909 Unspecified asthma, uncomplicated; G20 Parkinson's disease; M19.90 Unspecified osteoarthritis, unspecified site; F11.20 Opioid dependence, uncomplicated; F17.200 Nicotine dependence, unspecified, uncomplicated; F12.90 Cannabis use, unspecified, uncomplicated
CPT/HCPCS: 99283